=== PATIENT | male | born 1945 | race Two or more races ===

== ENCOUNTER 2017-06-29 11:18 | Inpatient (IN) | payer OTHER ==
[2017-06-29 11:50] VITALS: BMI 25.0
--- NOTE | 2017-06-29 13:32 | HP ---
CIWA Score - CIWA Score Nausea/Vomitin Muscle Tremors: 3 Anxiety: 3 Agitation: 3 Paroxysmal Sweats: 3 Orientation: 0-Oriented Tacttile Disturbances: 1-Very Mild Itch/Numbness Auditory Disturbances: 0-None Visual Disturbances: 0-None Headache: 1-Very Mild CIWA-Ar Total Score: 17 Admission ROS S - [facility] Chief Complaint: alcohol withdrawal sx Allergies/Adverse Reactions: Allergies Allergy/AdvReac Type Severity Reaction Status Date / Time No Known Allergies Allergy Verified 06/29/17 12:45 History of Present Illness: 72 yo m with h/o chronic alcoholism, direct transfer from [facility] where he was seen initially intoxicated/in withdrawal with tremors and he was given lbirium and then transferred to [facility] for inpatient detox adn rehab, has been to multiple facilities in past for drug treatment. PMHX HTN, BPH, GERD , depression, anxiety and insomnia, no SI no suicide attmepts in past. has h/o withdrawal seizures in past, last time 2 weeks, no DTS in past but reports hallucinations. taking medications, did nto take them today. Exam Limitations: No Limitations - Ebola screening Have you traveled outside of the country in the last 21 days: No Have you had contact with anyone from an Ebola affected area: No Have you been sick,other than usual withdrawal symptoms: No Do you have a fever: No - Review of Systems Constitutional: Chills, Diaphoresis, Changes in sleep, Weight Stable EENT: reports: No Symptoms Reported Respiratory: reports: No Symptoms reported Cardiac: reports: No Symptoms Reported GI: reports: Nausea, Poor Appetite, Poor Fluid Intake, Abdominal cramping : reports: No Symptoms Reported Musculoskeletal: reports: No Symptoms Reported Integumentary: reports: No Symptoms Reported, Flushing, Sweating Neuro: reports: Headache, Numbness, Seizure, Tingling, Tremors Hematology: reports: No Symptoms Reported Psychiatric: reports: Judgement Intact, Mood/Affect Appropiate, Orientated x3, Anxious, Depressed Other Systems: Reviewed and Negative Patient History - Patient Medical History Hx Anemia: No Hx Asthma: No Hx Chronic Obstructive Pulmonary Disease (COPD): No Hx Cancer: No Hx Cardiac Disorders: No Hx Congestive Heart Failure: No Hx Hypertension: Yes Hx Hypercholesterolemia: No Hx Pacemaker: No HX Cerebrovascular Accident: No Hx Seizures: Yes (alcohol related-last episode was in 04/2017) Hx Dementia: No Hx Diabetes: No Hx Gastrointestinal Disorders: Yes (acid reflux) Hx Liver Disease: No Hx Genitourinary Disorders: No Hx Sexually Transmitted Disorders: No Hx Renal Disease (ESRD): No Hx Thyroid Disease: No Hx Human Immunodeficiency Virus (HIV): No Hx Hepatitis C: No Hx Depression: Yes Hx Suicide Attempt: No (no SI) Hx Bipolar Disorder: No Hx Schizophrenia: No - Patient Surgical History Past Surgical History: No Hx Neurologic Surgery: No Hx Cataract Extraction: No Hx Cardiac Surgery: No Hx Lung Surgery: No Hx Breast Surgery: No Hx Breast Biopsy: No Hx Abdominal Surgery: No Hx Appendectomy: No Hx Cholecystectomy: No Hx Genitourinary Surgery: No Hx Section: No Hx Orthopedic Surgery: No Hx Hysterectomy: No Anesthesia Reaction: No - PPD History Previous Implant?: Yes Documented Results: Negative w/o proof Implanted On Prior [facility] Admission?: No PPD to be Administered?: Yes - Reproductive History Patient is a Female of Child Bearing Age (11 -55 yrs old): No Patient : No - Smoking Cessation Smoking history: Never smoked Have you smoked in the past 12 months: No Hx Chewing Tobacco Use: No Initiated information on smoking cessation: No 'Breaking Loose' booklet given: 06/29/17 - Substance & Tx. History Hx Alcohol Use: Yes Hx Substance Use: No Substance Use Type: Alcohol Hx Substance Use Treatment: Yes ([facility]) - Substances Abused Alcohol-vodka Route: Oral Frequency: 3-6 times per week Amount used: 1/2 pt. Age of first use: 24 Date of Last Use: 06/28/17 Family Disease History - Family Disease History Family History: Denies Admission Physical Exam [facility] - Vital Signs Vital Signs: Vital Signs - 24 hr 06/29/17 11:46 Temperature 96.2 F L Pulse Rate 96 H Respiratory 20 Rate Blood Pressure 169/94 - Physical General Appearance: Yes: Nourished, Appropriately Dressed, Disheveled, Mild Distress, Tremorous, Irritable, Sweating, Anxious HEENTM: Yes: Within Normal Limits, EOMI, Hearing grossly Normal, Normal ENT Inspection, Normocephalic, Normal Voice, DANIELLA, Pharynx Normal Respiratory: Yes: Within Normal Limits, Chest Non-Tender, Lungs Clear, Normal Breath Sounds Neck: Yes: Within Normal Limits, No masses,lesions,Nodules, Supple, Trachea in good position Breast: Yes: Breast Exam Deferred Cardiology: Yes: Within Normal Limits, Regular Rhythm, Regular Rate, S1, S2 Abdominal: Yes: Within Normal Limits, Normal Bowel Sounds, Non Tender, Flat Genitourinary: Yes: Within Normal Limits Back: Yes: Within Normal Limits, Normal Inspection Musculoskeletal: Yes: Within Normal Limits, full range of Motion, Gait Steady, Pelvis Stable Extremities: Yes: Normal Capillary Refill, Normal Range of Motion, Non-Tender, Tremors 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, Fully Oriented, Alert, Motor Strength 5/5, Normal Response, Depressed Affect Integumentary: Yes: Normal Color, Warm, Diaphoresis, Moist Lymphatic: Yes: Within Normal Limits - Addiitonal Findings: withdrawal sx - Diagnostic (1) Alcohol dependence with uncomplicated withdrawal Current Visit: Yes Status: Acute (2) Essential (primary) hypertension Current Visit: Yes Status: Acute (3) GERD (gastroesophageal reflux disease) Current Visit: Yes Status: Acute (4) Depression Current Visit: Yes Status: Acute (5) BPH (benign prostatic hyperplasia) Current Visit: Yes Status: Acute Cleared for Admission [facility] - Detox or Rehab [facility] Level of Care: Medically Managed Detox Regimen/Protocol: Librium [facility] Breath Alcohol Content Breath Alcohol Content: 0.024 Urine Drug Screen - Results Drug Screen Negative: No Urine Drug Screen Results: BZO-Benzodiazepines
[2017-06-29] MEDS ORDERED: MAGNESIUM CITRATE 300 ML BOTTLE PO PRN (13:33)
[2017-06-29] MEDS ORDERED: MENTHOL/PHENOL 1 EACH UD MM PRN (13:33)
[2017-06-29] MEDS ORDERED: guaiFENesin/D-METHORPHAN HB 10 ML UNIT-DOSE CUPS PO PRN (13:33)
[2017-06-29] MEDS ORDERED: P-EPHED 60MG/TRIPROLIDI 2.5MG TABLET PO PRN (13:33)
[2017-06-29] MEDS ORDERED: chlordiazePOXIDE HCL 25 MG CAPSULE PO PRN (13:33)
[2017-06-29] MEDS ORDERED: MAGNESIUM HYDROX 2400MG/30ML ORAL SUSPENSION 30 ML CUP PO PRN (13:33)
[2017-06-29] MEDS ORDERED: LOPERAMIDE HCL 2 MG CAPSULE PO PRN (13:33)
[2017-06-29] MEDS ORDERED: IBUPROFEN 400 MG TABLET (FP) PO PRN (13:33)
[2017-06-29] MEDS ORDERED: MAG HYDROX/AL HYDROX/SIMETH 30 ML UNIT-DOSE CUP PO PRN (13:33)
[2017-06-29] MEDS ORDERED: chlordiazePOXIDE HCL 25 MG CAPSULE PO ONE (13:52)
[2017-06-29] MEDS: TAMSULOSIN HCL 0.4 MG CAP.ER.24H (FP) PO SCH (15:02)
[2017-06-29] MEDS: LOSARTAN POTASSIUM 50 MG TABLET (FP) PO SCH (15:02)
[2017-06-29] MEDS: amLODIPine BESYLATE 10 MG TABLET (FP) PO SCH (15:02)
[2017-06-29] MEDS: FINASTERIDE 5 MG TABLET (FP) PO SCH (15:03)
--- NOTE | 2017-06-29 15:58 | CONSULT ---
[facility] Psychiatric Consult - Data Date of interview: 06/29/17 Admission source: [facility] Identifying data: This is 72 years old male with no past psychiatric history intoxicated with Alcohol Substance Abuse History: - Smoking Cessation. Smoking history: Never smoked. Have you smoked in the past 12 months: No. Hx Chewing Tobacco Use: No. Initiated information on smoking cessation: No. 'Breaking Loose' booklet given : 06/29/17. - Substance & Tx. History. Hx Alcohol Use: Yes. Hx Substance Use : No. Substance Use Type: Alcohol. Hx Substance Use Treatment: Yes ([facility]). - Substances Abused. Alcohol-vodka. Route: Oral. Frequency : 3-6 times per week. Amount used: 1/2 pt. Age of first use: 24. Date of Last Use: 06/28/17 Medical History: HTN, GERD, BPH Psychiatric History: Patient reports histopry of depression and anxiety, asking for mental retardation aide, reports no history of psychiatric hospitalizations Physical/Sexual Abuse/Trauma History: Denies Additional Comment: Observation. Lexapro 10mg poqd Mental Status Exam - Mental Status Exam Alert and Oriented to: Place, Person Cognitive Function: Fair Patient Appearance: Well Groomed Mood: Anxious Affect: Mood Congruent Patient Behavior: Cooperative Speech Pattern: Appropriate Voice Loudness: Normal Thought Process: Goal Oriented Thought Disorder: Being Controlled Hallucinations: Denies Suicidal Ideation: Denies Homicidal Ideation: Denies Insight/Judgement: Fair Sleep: Difficulty falling asleep Appetite: Fair Muscle strength/Tone: Normal Gait/Station: Shuffling Additional Comments: Lexapro 10mg poqd Psychiatric Findings - Problem List ([place] 1, 2,3) (1) Alcohol-induced anxiety disorder Current Visit: Yes Status: Acute (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
[2017-06-29 16:45] LABS: URINE APPEARANCE CLEAR; URINE BILIRUBIN NEGATIVE (NEGATIVE); URINE BLOOD NEGATIVE (NEGATIVE); URINE COLOR DKYELLOW; URINE GLUCOSE (UA) NEGATIVE (NEGATIVE); URINE KETONE NEGATIVE (NEGATIVE); URINE LEUK ESTERASE NEGATIVE (NEGATIVE); URINE NITRITE NEGATIVE (NEGATIVE); URINE UROBILINOGEN 4.0 E.U/dl mg/dL (0.2-1.0)
[2017-06-29 16:48] LABS: URINE PROTEIN 1+ (NEGATIVE)
[2017-06-29 17:24] LABS: URINE MUCUS RARE; URINE RBC <1 /hpf (0-3); URINE WBC <1 /hpf (3-5)
[2017-06-29] MEDS: chlordiazePOXIDE HCL 25 MG CAPSULE PO SCH ×2 (17:34→22:11)
[2017-06-29] MEDS: hydrOXYzine PAMOATE 50 MG CAPSULE (FP) PO PRN ×2 (17:36→22:12)
[2017-06-29 20:07] LABS: URINE LEUK ESTERASE Negative (NEGATIVE)
[2017-06-29] MEDS: LATANOPROST 0.005% OPHTH SOLN 2.5ML BOTTLE OU SCH (22:11)
[2017-06-29] MEDS: THIAMINE HCL 100 MG TABLET (FP) PO SCH (22:11)
[2017-06-30] MEDS: chlordiazePOXIDE HCL 25 MG CAPSULE PO SCH ×4 (05:38→22:12)
[2017-06-30] MEDS: TAMSULOSIN HCL 0.4 MG CAP.ER.24H (FP) PO SCH (09:15)
[2017-06-30] MEDS: amLODIPine BESYLATE 10 MG TABLET (FP) PO SCH (10:09)
[2017-06-30] MEDS: ESCITALOPRAM OXALATE 10 MG TABLET (FP) PO SCH (10:09)
[2017-06-30] MEDS: PRENATAL VITAMINS W/ FOLIC ACID TABLET (FP) PO SCH (10:09)
[2017-06-30] MEDS: LOSARTAN POTASSIUM 50 MG TABLET (FP) PO SCH (10:09)
[2017-06-30] MEDS: FINASTERIDE 5 MG TABLET (FP) PO SCH (10:09)
--- NOTE | 2017-06-30 10:50 | EKG ---
Test Reason : Blood Pressure : / mmHG Vent. Rate : 077 BPM Atrial Rate : 077 BPM P-R Int : 130 ms QRS Dur : 084 ms QT Int : 416 ms P-R-T Axes : 037 003 031 degrees QTc Int : 470 ms NORMAL SINUS RHYTHM WITH SINUS ARRHYTHMIA NONSPECIFIC ST ABNORMALITY ABNORMAL ECG NO PREVIOUS ECGS AVAILABLE Confirmed by MD GIOVANI, SHUN ([id number]) on 06/30/2017 10:50:41 AM Referred By: Confirmed By:SHUN MATUTE MD
[2017-06-30 11:07] LABS: CALCIUM 8.6 mg/dL (8.5-10.1); MCH 30.6 pg (25.7-33.7); MCHC 33.1 g/dl (32.0-35.9); MEAN CELL VOLUME 92.6 fl (80-96); MEAN PLT VOLUME 10.1 fl (7.5-11.1); PLATELET COUNT 93 K/MM3 (134-434); RDW 14.5 % (11.9-15.9); WHITE BLOOD COUNT 2.7 K/mm3 (4.0-10.0)
[2017-06-30 11:12] LABS: ALK PHOS 65 U/L (45-117); ANION GAP 10 (8-16); BILIRUBIN,TOTAL 1.1 mg/dL (0.2-1.0); CO2 28 mmol/L (21-32); CREATININE 0.8 mg/dL (0.7-1.3); GLUCOSE,RANDOM 103 mg/dL (74-106); SGOT/AST 163 U/L (15-37); SGPT/ALT 96 U/L (12-78); TOT PROT 7.7 g/dl (6.4-8.2)
[2017-06-30] MEDS: hydrOXYzine PAMOATE 50 MG CAPSULE (FP) PO PRN (13:37)
[2017-06-30] MEDS ORDERED: POTASSIUM CHLORIDE TABS 20 MEQ TABLET.ER (FP) PO ONE (13:55)
--- NOTE | 2017-06-30 13:58 | PN ---
[facility] CIWA - CIWA Score Nausea/Vomitin-No Nausea/No Vomiting Muscle Tremors: 4-Moderate,w/Arms Extend Anxiety: 3 Agitation: 3 Paroxysmal Sweats: 3 Orientation: 0-Oriented Tacttile Disturbances: 0-None Auditory Disturbances: 2-Mild Harshness/Frighten Visual Disturbances: 2-Mild Sensitivity Headache: 0-None Present CIWA-Ar Total Score: 17 [facility] Progress Note (SOAP) Subjective: Tremors, Anxious, Fatigue, Sweating. Objective: PT. A & O X 3, OBSERVED AMBULATING ON UNIT. NO ACUTE DISTRESS. PT. DENIES CHEST PAIN. 06/30/17 13:53 Vital Signs Temperature 97.3 F L 06/30/17 13:03 Pulse Rate 100 H 06/30/17 13:03 Respiratory Rate 20 06/30/17 13:03 Blood Pressure 140/84 06/30/17 13:03 O2 Sat by Pulse Oximetry (%) Laboratory Tests 06/29/17 06/30/17 06/30/17 15:15 06:00 06:00 WBC 2.7 L RBC 3.94 L Hgb 12.1 Hct 36.5 MCV 92.6 MCH 30.6 MCHC 33.1 RDW 14.5 Plt Count 93 L MPV 10.1 Sodium 136 Potassium 3.4 L Chloride 98 Carbon Dioxide 28 Anion Gap 10 BUN 14 Creatinine 0.8 Creat Clearance w eGFR > 60 Random Glucose 103 Calcium 8.6 Total Bilirubin 1.1 H AST 163 H ALT 96 H Alkaline Phosphatase 65 Total Protein 7.7 Albumin 4.0 Urine Color Dkyellow Urine Appearance Clear Urine pH 6.0 Ur Specific [place] 1.014 Urine Protein 1+ H Urine Glucose (UA) Negative Urine Ketones Negative Urine Blood Negative Urine Nitrite Negative Urine Bilirubin Negative Urine Urobilinogen 4.0 e.u/dl Ur Leukocyte Esterase Negative Urine WBC (Auto) <1 Urine RBC (Auto) <1 Ur Epithelial Cells Rare Urine Mucus Rare RPR Titer 06/30/17 06:00 WBC RBC Hgb Hct MCV MCH MCHC RDW Plt Count MPV Sodium Potassium Chloride Carbon Dioxide Anion Gap BUN Creatinine Creat Clearance w eGFR Random Glucose Calcium Total Bilirubin AST ALT Alkaline Phosphatase Total Protein Albumin Urine Color Urine Appearance Urine pH Ur Specific [place] Urine Protein Urine Glucose (UA) Urine Ketones Urine Blood Urine Nitrite Urine Bilirubin Urine Urobilinogen Ur Leukocyte Esterase Urine WBC (Auto) Urine RBC (Auto) Ur Epithelial Cells Urine Mucus RPR Titer Nonreactive LABS NOTED. Assessment: 06/30/17 13:53 WITHDRAWAL SYMPTOMS. LEUKOPENIA. HYPOKALEMIA. THROMBOCYTOPENIA. 06/30/17 13:57 Plan: CONTINUE DETOX. K-DUR, 20 MEQ PO X 1 NOW, THEN 20 MEQ PO BID AFTER. REPEAT CBC, AST ON 07/02/2017 FOR ABNORMAL ADMISSION VALUES. INCREASE DAILY PO FLUID INTAKE.
[2017-06-30] MEDS: POTASSIUM CHLORIDE TABS 20 MEQ TABLET.ER (FP) PO SCH (17:36)
[2017-06-30] MEDS: LATANOPROST 0.005% OPHTH SOLN 2.5ML BOTTLE OU SCH (22:12)
[2017-06-30] MEDS: THIAMINE HCL 100 MG TABLET (FP) PO SCH (22:12)
[2017-07-01] MEDS: chlordiazePOXIDE HCL 25 MG CAPSULE PO SCH ×2 (05:08→10:18)
[2017-07-01] MEDS: ESCITALOPRAM OXALATE 10 MG TABLET (FP) PO SCH (10:17)
[2017-07-01] MEDS: PRENATAL VITAMINS W/ FOLIC ACID TABLET (FP) PO SCH (10:18)
[2017-07-01] MEDS: POTASSIUM CHLORIDE TABS 20 MEQ TABLET.ER (FP) PO SCH ×2 (10:18→17:18)
[2017-07-01] MEDS: amLODIPine BESYLATE 10 MG TABLET (FP) PO SCH (10:18)
[2017-07-01] MEDS: TAMSULOSIN HCL 0.4 MG CAP.ER.24H (FP) PO SCH (10:18)
[2017-07-01] MEDS: LOSARTAN POTASSIUM 50 MG TABLET (FP) PO SCH (10:18)
[2017-07-01] MEDS: FINASTERIDE 5 MG TABLET (FP) PO SCH (10:20)
[2017-07-01] MEDS: hydrOXYzine PAMOATE 50 MG CAPSULE (FP) PO PRN (11:03)
--- NOTE | 2017-07-01 13:30 | PN ---
[facility] CIWA - CIWA Score Nausea/Vomitin-No Nausea/No Vomiting Muscle Tremors: 5 Anxiety: 4-Mod. Anxious/Guarded Agitation: 2 Paroxysmal Sweats: 2 Orientation: 0-Oriented Tacttile Disturbances: 3-Moderate Itch/Numb/Burn Auditory Disturbances: 0-None Visual Disturbances: 0-None Headache: 0-None Present CIWA-Ar Total Score: 16 [facility] Progress Note (SOAP) Subjective: Tremors, Sweating, Body Aches. Objective: PT. A & O X 3, OBSERVED AMBULATING ON UNIT. NO ACUTE DISTRESS. 07/01/17 13:26 Vital Signs Temperature 98.3 F 07/01/17 13:21 Pulse Rate 84 07/01/17 13:21 Respiratory Rate 16 07/01/17 13:21 Blood Pressure 149/81 07/01/17 13:21 O2 Sat by Pulse Oximetry (%) Laboratory Tests 06/29/17 06/30/17 06/30/17 15:15 06:00 06:00 WBC 2.7 L RBC 3.94 L Hgb 12.1 Hct 36.5 MCV 92.6 MCH 30.6 MCHC 33.1 RDW 14.5 Plt Count 93 L MPV 10.1 Sodium 136 Potassium 3.4 L Chloride 98 Carbon Dioxide 28 Anion Gap 10 BUN 14 Creatinine 0.8 Creat Clearance w eGFR > 60 Random Glucose 103 Calcium 8.6 Total Bilirubin 1.1 H AST 163 H ALT 96 H Alkaline Phosphatase 65 Total Protein 7.7 Albumin 4.0 Urine Color Dkyellow Urine Appearance Clear Urine pH 6.0 Ur Specific [place] 1.014 Urine Protein 1+ H Urine Glucose (UA) Negative Urine Ketones Negative Urine Blood Negative Urine Nitrite Negative Urine Bilirubin Negative Urine Urobilinogen 4.0 e.u/dl Ur Leukocyte Esterase Negative Urine WBC (Auto) <1 Urine RBC (Auto) <1 Ur Epithelial Cells Rare Urine Mucus Rare RPR Titer 06/30/17 06:00 WBC RBC Hgb Hct MCV MCH MCHC RDW Plt Count MPV Sodium Potassium Chloride Carbon Dioxide Anion Gap BUN Creatinine Creat Clearance w eGFR Random Glucose Calcium Total Bilirubin AST ALT Alkaline Phosphatase Total Protein Albumin Urine Color Urine Appearance Urine pH Ur Specific [place] Urine Protein Urine Glucose (UA) Urine Ketones Urine Blood Urine Nitrite Urine Bilirubin Urine Urobilinogen Ur Leukocyte Esterase Urine WBC (Auto) Urine RBC (Auto) Ur Epithelial Cells Urine Mucus RPR Titer Nonreactive LABS NOTED. Assessment: 07/01/17 13:26 WITHDRAWAL SYMPTOMS. LEUKOPENIA. THROMBOCYTOPENIA. HYPOKALEMIA. 07/01/17 13:28 Plan: CONTINUE DETOX. CONTINUE K-DUR. INCREASE DAILY PO FLUID INTAKE.
[2017-07-01] MEDS: chlordiazePOXIDE 5 MG CAPSULE PO SCH ×2 (17:18→22:16)
[2017-07-01] MEDS: ACETAMINOPHEN 325 MG TABLET (FP) PO PRN (17:48)
[2017-07-01] MEDS: LATANOPROST 0.005% OPHTH SOLN 2.5ML BOTTLE OU SCH (22:16)
[2017-07-01] MEDS: THIAMINE HCL 100 MG TABLET (FP) PO SCH (22:16)
[2017-07-02] MEDS: chlordiazePOXIDE 5 MG CAPSULE PO SCH ×2 (06:09→10:10)
[2017-07-02] MEDS: FINASTERIDE 5 MG TABLET (FP) PO SCH (10:11)
[2017-07-02] MEDS: amLODIPine BESYLATE 10 MG TABLET (FP) PO SCH (10:11)
[2017-07-02] MEDS: ESCITALOPRAM OXALATE 10 MG TABLET (FP) PO SCH (10:11)
[2017-07-02] MEDS: TAMSULOSIN HCL 0.4 MG CAP.ER.24H (FP) PO SCH (10:11)
[2017-07-02] MEDS: POTASSIUM CHLORIDE TABS 20 MEQ TABLET.ER (FP) PO SCH ×2 (10:11→17:52)
[2017-07-02] MEDS: PRENATAL VITAMINS W/ FOLIC ACID TABLET (FP) PO SCH (10:11)
[2017-07-02] MEDS: LOSARTAN POTASSIUM 50 MG TABLET (FP) PO SCH (10:11)
[2017-07-02 10:14] LABS: SGOT/AST 86 U/L (15-37); SGPT/ALT 79 U/L (12-78)
[2017-07-02 10:19] LABS: BASOPHIL 1.8 % (0-2.0); EOSINOPHIL 2.8 % (0-4.5); MEAN CELL VOLUME 93.9 fl (80-96); MEAN PLT VOLUME 10.1 fl (7.5-11.1); NEUTROPHILS 29.5 % (42.8-82.8); PLATELET COUNT 107 K/MM3 (134-434); RDW 14.6 % (11.9-15.9); WHITE BLOOD COUNT 2.9 K/mm3 (4.0-10.0)
--- NOTE | 2017-07-02 12:41 | PN ---
[facility] Progress Note (SOAP) Subjective: Back pain, legs achy, chills Objective: 07/02/17 12:38 Last Vital Signs Temp Pulse Resp BP Pulse Ox 98.4 F 94 H 18 136/86 07/02/17 10:30 07/02/17 10:30 07/02/17 10:30 07/02/17 10:30 Laboratory Tests 06/29/17 06/30/17 06/30/17 15:15 06:00 06:00 WBC 2.7 L RBC 3.94 L Hgb 12.1 Hct 36.5 MCV 92.6 MCH 30.6 MCHC 33.1 RDW 14.5 Plt Count 93 L MPV 10.1 Neutrophils % Lymphocytes % Monocytes % Eosinophils % Basophils % Sodium 136 Potassium 3.4 L Chloride 98 Carbon Dioxide 28 Anion Gap 10 BUN 14 Creatinine 0.8 Creat Clearance w eGFR > 60 Random Glucose 103 Calcium 8.6 Total Bilirubin 1.1 H AST 163 H ALT 96 H Alkaline Phosphatase 65 Total Protein 7.7 Albumin 4.0 Urine Color Dkyellow Urine Appearance Clear Urine pH 6.0 Ur Specific [place] 1.014 Urine Protein 1+ H Urine Glucose (UA) Negative Urine Ketones Negative Urine Blood Negative Urine Nitrite Negative Urine Bilirubin Negative Urine Urobilinogen 4.0 e.u/dl Ur Leukocyte Esterase Negative Urine WBC (Auto) <1 Urine RBC (Auto) <1 Ur Epithelial Cells Rare Urine Mucus Rare RPR Titer 06/30/17 07/02/17 07/02/17 06:00 08:00 08:00 WBC 2.9 L RBC 3.90 L Hgb 12.1 Hct 36.6 MCV 93.9 MCH 31.0 MCHC 33.0 RDW 14.6 Plt Count 107 L MPV 10.1 Neutrophils % 29.5 L Lymphocytes % 53.5 H Monocytes % 12.4 H Eosinophils % 2.8 Basophils % 1.8 Sodium Potassium Chloride Carbon Dioxide Anion Gap BUN Creatinine Creat Clearance w eGFR Random Glucose Calcium Total Bilirubin AST 86 H D ALT 79 H Alkaline Phosphatase Total Protein Albumin Urine Color Urine Appearance Urine pH Ur Specific [place] Urine Protein Urine Glucose (UA) Urine Ketones Urine Blood Urine Nitrite Urine Bilirubin Urine Urobilinogen Ur Leukocyte Esterase Urine WBC (Auto) Urine RBC (Auto) Ur Epithelial Cells Urine Mucus RPR Titer Nonreactive Labs noted: Hypokalemia and abnormal UA Assessment: 07/02/17 12:40 Withdrawal symptoms Noted with hypokalemia and abnormal UA (proteinuria) Plan: Continue detox Hypokalemia: continue supplement Abnormal UA (proteinuria): encouraged to drink lots of water, repeat UA
[2017-07-02] MEDS: chlordiazePOXIDE HCL 10 MG CAPSULE PO SCH ×2 (17:51→22:18)
[2017-07-02] MEDS: THIAMINE HCL 100 MG TABLET (FP) PO SCH (22:18)
[2017-07-02] MEDS: LATANOPROST 0.005% OPHTH SOLN 2.5ML BOTTLE OU SCH (22:18)
[2017-07-02] MEDS: ACETAMINOPHEN 325 MG TABLET (FP) PO PRN (22:19)
[2017-07-03] MEDS: chlordiazePOXIDE HCL 10 MG CAPSULE PO SCH ×2 (05:11→11:31)
[2017-07-03] MEDS: ESCITALOPRAM OXALATE 10 MG TABLET (FP) PO SCH (10:16)
[2017-07-03] MEDS: PRENATAL VITAMINS W/ FOLIC ACID TABLET (FP) PO SCH (10:16)
[2017-07-03] MEDS: FINASTERIDE 5 MG TABLET (FP) PO SCH (10:16)
[2017-07-03] MEDS: TAMSULOSIN HCL 0.4 MG CAP.ER.24H (FP) PO SCH (10:16)
[2017-07-03] MEDS: amLODIPine BESYLATE 10 MG TABLET (FP) PO SCH (10:16)
[2017-07-03] MEDS: LOSARTAN POTASSIUM 50 MG TABLET (FP) PO SCH (10:16)
[2017-07-03] MEDS: POTASSIUM CHLORIDE TABS 20 MEQ TABLET.ER (FP) PO SCH ×2 (10:17→17:43)
--- NOTE | 2017-07-03 11:25 | PN ---
[facility] Progress Note (SOAP) Subjective: Sweating, Anxious. Objective: PATIENT A & O X 3, OBSERVED AMBULATING ON UNIT. NO ACUTE DISTRESS. PATIENT SCHEDULED FOR DISCHARGE TODAY. HOWEVER, UPON MORNING MEDICAL ROUNDS, PATIENT REPORTS THAT HE FELL NEAR HIS BED EARLIER AND HIT FLOOR. PATIENT REPORTS THAT HE FELL TO FLOOR AND THAT HE LANDED ON HIS LEFT SHOULDER (PATIENT POINTS TO DELTOID MUSCLE AFFECTED SITE). PATIENT DENIES HITTING HIS HEAD AFTER FALL AND HE DENIES LOC AFTER FALL. NO SWELLING, ERYTHEMA, BLEEDING OR UNUSUAL DISCHARGE NOTED ANYWHERE ON LEFT SHOULDER. PATIENT REPORTS CURRENT MINIMAL DISCOMFORT IN LEFT SHOULDER AREA. ALSO CURRENTLY AWAITING REPORT FROM COUNSELOR MR. DIXON REGARDING PATIENT'S AFTERCARE PLAN. 07/03/17 11:20 Laboratory Tests 06/29/17 06/30/17 06/30/17 15:15 06:00 06:00 WBC 2.7 L RBC 3.94 L Hgb 12.1 Hct 36.5 MCV 92.6 MCH 30.6 MCHC 33.1 RDW 14.5 Plt Count 93 L MPV 10.1 Neutrophils % Lymphocytes % Monocytes % Eosinophils % Basophils % Sodium 136 Potassium 3.4 L Chloride 98 Carbon Dioxide 28 Anion Gap 10 BUN 14 Creatinine 0.8 Creat Clearance w eGFR > 60 Random Glucose 103 Calcium 8.6 Total Bilirubin 1.1 H AST 163 H ALT 96 H Alkaline Phosphatase 65 Total Protein 7.7 Albumin 4.0 Urine Color Dkyellow Urine Appearance Clear Urine pH 6.0 Ur Specific [place] 1.014 Urine Protein 1+ H Urine Glucose (UA) Negative Urine Ketones Negative Urine Blood Negative Urine Nitrite Negative Urine Bilirubin Negative Urine Urobilinogen 4.0 e.u/dl Ur Leukocyte Esterase Negative Urine WBC (Auto) <1 Urine RBC (Auto) <1 Ur Epithelial Cells Rare Urine Mucus Rare RPR Titer 06/30/17 07/02/17 07/02/17 06:00 08:00 08:00 WBC 2.9 L RBC 3.90 L Hgb 12.1 Hct 36.6 MCV 93.9 MCH 31.0 MCHC 33.0 RDW 14.6 Plt Count 107 L MPV 10.1 Neutrophils % 29.5 L Lymphocytes % 53.5 H Monocytes % 12.4 H Eosinophils % 2.8 Basophils % 1.8 Sodium Potassium Chloride Carbon Dioxide Anion Gap BUN Creatinine Creat Clearance w eGFR Random Glucose Calcium Total Bilirubin AST 86 H D ALT 79 H Alkaline Phosphatase Total Protein Albumin Urine Color Urine Appearance Urine pH Ur Specific [place] Urine Protein Urine Glucose (UA) Urine Ketones Urine Blood Urine Nitrite Urine Bilirubin Urine Urobilinogen Ur Leukocyte Esterase Urine WBC (Auto) Urine RBC (Auto) Ur Epithelial Cells Urine Mucus RPR Titer Nonreactive Vital Signs Temperature 96 F L 07/03/17 09:20 Pulse Rate 78 07/03/17 09:20 Respiratory Rate 20 07/03/17 09:20 Blood Pressure 156/89 07/03/17 09:20 O2 Sat by Pulse Oximetry (%) LABS NOTED. 07/03/17 11:25 07/03/17 11:27 Assessment: 07/03/17 11:24 WITHDRAWAL SYMPTOMS. Plan: ORDER X-RAY OF LEFT SHOULDER. PATIENT'S DISCHARGE PENDING BASED UPON RESULTS OF X-RAY AND BASED UPON DETERMINATION FROM MR. DIXON REGARDING AFTERCARE PLAN.
[2017-07-03] MEDS: LATANOPROST 0.005% OPHTH SOLN 2.5ML BOTTLE OU SCH (22:14)
[2017-07-03] MEDS: THIAMINE HCL 100 MG TABLET (FP) PO SCH (22:14)
[2017-07-04] MEDS: amLODIPine BESYLATE 10 MG TABLET (FP) PO SCH (09:32)
[2017-07-04] MEDS: LOSARTAN POTASSIUM 50 MG TABLET (FP) PO SCH (09:32)
[2017-07-04] MEDS: ESCITALOPRAM OXALATE 10 MG TABLET (FP) PO SCH (09:32)
[2017-07-04] MEDS: PRENATAL VITAMINS W/ FOLIC ACID TABLET (FP) PO SCH (09:32)
[2017-07-04] MEDS: POTASSIUM CHLORIDE TABS 20 MEQ TABLET.ER (FP) PO SCH (09:32)
[2017-07-04] MEDS: FINASTERIDE 5 MG TABLET (FP) PO SCH (09:32)
[2017-07-04] MEDS: TAMSULOSIN HCL 0.4 MG CAP.ER.24H (FP) PO SCH (09:34)
[2017-07-04 09:45] VITALS: BP 125/75; PULSE 100; TEMP 98.7
--- NOTE | 2017-07-04 12:07 | DS ---
[facility] Detox Discharge Summary Admission Date: 06/29/17 Discharge Date: 07/04/17 - History Present History: Alcohol Dependence Pertinent Past History: asthma hypertension bph - Physical Exam Results Vital Signs: Vital Signs Temperature 98.7 F 07/04/17 09:44 Pulse Rate 100 H 07/04/17 09:44 Respiratory Rate 18 07/04/17 09:44 Blood Pressure 125/75 07/04/17 09:44 O2 Sat by Pulse Oximetry (%) Pertinent Admission Physical Exam Findings: withdrawal sx Laboratory Last Values WBC 2.9 K/mm3 (4.0-10.0) L 07/02/17 08:00 RBC 3.90 M/mm3 (4.00-5.60) L 07/02/17 08:00 Hgb 12.1 GM/dL (11.7-16.9) 07/02/17 08:00 Hct 36.6 % (35.4-49) 07/02/17 08:00 MCV 93.9 fl (80-96) 07/02/17 08:00 MCH 31.0 pg (25.7-33.7) 07/02/17 08:00 MCHC 33.0 g/dl (32.0-35.9) 07/02/17 08:00 RDW 14.6 % (11.9-15.9) 07/02/17 08:00 Plt Count 107 K/MM3 (134-434) L 07/02/17 08:00 MPV 10.1 fl (7.5-11.1) 07/02/17 08:00 Neutrophils % 29.5 % (42.8-82.8) L 07/02/17 08:00 Lymphocytes % 53.5 % (8-40) H 07/02/17 08:00 Monocytes % 12.4 % (3.8-10.2) H 07/02/17 08:00 Eosinophils % 2.8 % (0-4.5) 07/02/17 08:00 Basophils % 1.8 % (0-2.0) 07/02/17 08:00 Sodium 136 mmol/L (136-145) 06/30/17 06:00 Potassium 3.4 mmol/L (3.5-5.1) L 06/30/17 06:00 Chloride 98 mmol/L (98-107) 06/30/17 06:00 Carbon Dioxide 28 mmol/L (21-32) 06/30/17 06:00 Anion Gap 10 (8-16) 06/30/17 06:00 BUN 14 mg/dL (7-18) 06/30/17 06:00 Creatinine 0.8 mg/dL (0.7-1.3) 06/30/17 06:00 Creat Clearance w eGFR > 60 (>60) 06/30/17 06:00 Random Glucose 103 mg/dL (74-106) 06/30/17 06:00 Calcium 8.6 mg/dL (8.5-10.1) 06/30/17 06:00 Total Bilirubin 1.1 mg/dL (0.2-1.0) H 06/30/17 06:00 AST 86 U/L (15-37) H D 07/02/17 08:00 ALT 79 U/L (12-78) H 07/02/17 08:00 Alkaline Phosphatase 65 U/L (45-117) 06/30/17 06:00 Total Protein 7.7 g/dl (6.4-8.2) 06/30/17 06:00 Albumin 4.0 g/dl (3.4-5.0) 06/30/17 06:00 Urine Color Dkyellow 06/29/17 15:15 Urine Appearance Clear 06/29/17 15:15 Urine pH 6.0 (5.0-8.0) 06/29/17 15:15 Ur Specific [place] 1.014 (1.001-1.035) 06/29/17 15:15 Urine Protein 1+ (NEGATIVE) H 06/29/17 15:15 Urine Glucose (UA) Negative (NEGATIVE) 06/29/17 15:15 Urine Ketones Negative (NEGATIVE) 06/29/17 15:15 Urine Blood Negative (NEGATIVE) 06/29/17 15:15 Urine Nitrite Negative (NEGATIVE) 06/29/17 15:15 Urine Bilirubin Negative (NEGATIVE) 06/29/17 15:15 Urine Urobilinogen 4.0 e.u/dl mg/dL (0.2-1.0) 06/29/17 15:15 Ur Leukocyte Esterase Negative (NEGATIVE) 06/29/17 15:15 Urine WBC (Auto) <1 /hpf (3-5) 06/29/17 15:15 Urine RBC (Auto) <1 /hpf (0-3) 06/29/17 15:15 Ur Epithelial Cells Rare /HPF (FEW) 06/29/17 15:15 Urine Mucus Rare 06/29/17 15:15 RPR Titer Nonreactive (NONREACTIVE) 06/30/17 06:00 lab noted - Treatment Hospital Course: Detox Protocol Followed, Detoxed Safely, Responded well, Discharged Condition Good, Rehab Referral Accepted Patient has Accepted a Rehab Referral to: as per counselor arranged - Medication Discharge Medications: Ambulatory Orders Escitalopram Oxalate [Lexapro -] 10 mg PO DAILY #30 tablet 06/29/17 Famotidine [Pepcid -] 20 mg PO Q12H 06/29/17 Folic Acid - 1 mg PO DAILY 06/29/17 Multivitamins [Tab-A-Vit -] 1 tab PO DAILY 06/29/17 Amlodipine Besylate [Norvasc -] 10 mg PO DAILY #30 tablet 07/03/17 Latanoprost 0.005% Eye Drops [Xalatan 0.005% Eye Drops -] 1 drop OU HS #1 bottle 07/03/17 Losartan Potassium [Cozaar -] 50 mg PO DAILY #30 tablet 07/03/17 Finasteride [Proscar -] 5 mg PO DAILY #14 tablet 07/04/17 Tamsulosin HCl [Flomax] 0.4 mg PO DAILY #14 cap.er.24h 07/04/17 Thiamine HCl [Vitamin B1 -] 100 mg PO DAILY #1 tablet 07/04/17 - Diagnosis (1) Alcohol dependence with uncomplicated withdrawal Current Visit: Yes Status: Acute (2) BPH (benign prostatic hyperplasia) Current Visit: Yes Status: Chronic Qualifiers: Lower urinary tract symptom presence: symptoms present Lower urinary tract symptom detail: post-void dribbling Qualified Code(s): N40.1 - Benign prostatic hyperplasia with lower urinary tract symptoms; N39.43 - Post-void dribbling; N39.43 - Post-void dribbling (3) Essential (primary) hypertension Current Visit: Yes Status: Chronic - AMA Did Patient Leave Against Medical Advice: No
== END 2017-07-04 13:45 | disposition home or self-care (01) | DRG 897 ==
LOC: YASAS 11:18 → Y3N 13:31
PROVIDERS: ADMIT Internal Medicine; ATTEND Internal Medicine
PROC: HZ2ZZZZ Detoxification Services for Substance Abuse Treatment (ICD-10-PCS; principal; 2017-06-29)
DX: F10.230 Alcohol dependence with withdrawal, uncomplicated (principal); F10.24 Alcohol dependence with alcohol-induced mood disorder; F10.280 Alcohol dependence with alcohol-induced anxiety disorder; I10 Essential (primary) hypertension; N40.1 Benign prostatic hyperplasia with lower urinary tract symptoms; N39.43 Post-void dribbling
CPT/HCPCS: 36415; 73030-TC-LT; 80053; 81003; 81015; 84450; 84460; 85025; 85027; 86593; 93005; 93010